=== PATIENT | male | born 1935 | race Caucasian/White ===

== ENCOUNTER 2020-03-08 15:17 | Outpatient (CLI) | payer MEDICARE, SELFPAY ==
[2020-03-08 15:40] LABS: Basophils Percent Auto 0.3 % (0.2-1.2); Eosinophils Absolute Auto 0.2 K/mm3 (0-0.3); Eosinophils Percent Auto 2.2 % (0-4.4); Hematocrit 42.5 % (42.0-52.0); Hemoglobin 14.3 g/dL (14.0-18.0); Immature Granulocyte Absolute 0.04 K/mm3 (0.00-0.031); Immature Granulocyte Percent A 0.5 % (0-0.5); Lymphocytes Absolute Auto 1.09 K/mm3 (0.9-3.2); Lymphocytes Percent Auto 12.6 % (18.3-44.2); Mean Corpuscular HGB Conc 33.6 g/dl (32-36); Mean Corpuscular Hemoglobin 33.9 pg (26-34); Mean Corpuscular Volume 100.7 fl (80-100); Mean Platelet Volume 9.6 fl (7.4-10.4); Monocytes Absolute Auto 0.6 K/mm3 (0.1-0.6); Monocytes Percent Auto 7.2 % (2.6-8.5); Neutrophils Absolute Auto 6.7 K/mm3 (1.3-6.7); Neutrophils Percent Auto 77.2 % (45.5-73.1); Platelet Count Result 171 k/mm3 (150-375); Red Blood Count 4.22 M/mm3 (4.6-6.20); Red Cell Distribution Width 12.3 % (11.5-14.5); White Blood Count 8.7 K/mm3 (4.5-10.0)
[2020-03-08 16:43] LABS: Iron 97 ug/dL (49-181)
[2020-03-08 16:44] LABS: Alanine Aminotransferase 31 U/L (4-50); Albumin Level 3.9 g/dL (3.5-5.1); Alkaline Phosphatase 60 U/L (38-126); Aspartate Amino Transferase 23 U/L (17-59); Bilirubin,Total 0.5 mg/dL (0.2-1.3); Blood Urea Nitrogen 19 mg/dL (9-20); Calcium 9.3 mg/dL (8.4-10.2); Carbon Dioxide 29 mmol/L (22-30); Chloride 102 mmol/L (98-107); Estimated Glomerular Filt Rate > 60; Glucose 156 mg/dL (75-110); Lactate Dehydrogenase 399 U/L (313-618); Potassium 4.5 mmol/L (3.4-5.0); Sodium 139 mmol/L (137-145)
[2020-03-08 16:54] LABS: Percent Iron Saturation 37 % (20-50)
[2020-03-16 08:42] LABS: Platelet Antibody, Direct IgG NEGATIVE (NEGATIVE)
== END 2020-03-08 15:18 | disposition home or self-care (01) ==
PROVIDERS: PCP Internal Medicine; Visit Provider Internal Medicine Hematology & Oncology
DX: D69.59 Other secondary thrombocytopenia (principal)
CPT/HCPCS: 36415; 80053; 82607; 82728; 83540; 83550; 83615; 85025; 86023

== ENCOUNTER 2020-04-03 13:02 | Outpatient (CLI) | payer MEDICARE, SELFPAY ==
--- NOTE | ~2020-04-03 | US_ITS ---
US abdomen complete EXAMINATION: US Abdomen Complete INDICATION: Thrombocytopenia PROCEDURE: Realtime High Resolution abdomen ultrasound. COMPARISON: No prior studies for comparison FINDINGS: Gallbladder is absent. Common bile duct measures 8 mm. Liver echotexture is increased, consistent with fatty infiltration.. Pancreas within normal limits. Pancreatic tail is obscured by bowel gas. Spleen is unremarkeable. Renal echotexture is within norm al limits bilaterally without hydronephrosis, contour deforming mass or renal stone. Right kidney yazmin sures 10.8 cm. Left kidney measures 10 cm. There is a 1.8 cm cyst in the lower pole of the left kidne y. Visualized aspects of the aorta and IVC are within normal limits. Portal vein is patent. No sonograph ic Jang's sign indicated by the technologist. IMPRESSION: 1: Increased liver echotexture, consistent with fatty infiltration. 2: Gallbladder not visualized, likely surgical absent with expected prominence of the common bile flakito t. Reviewed, dictated and finalized at location A. IMPRESSION: 1: Increased liver echotexture, consistent with fatty infiltration. 2: Gallbladder not visualized, likely surgical absent with expected prominence of the common bile duct.
== END 2020-04-03 13:03 | disposition home or self-care (01) ==
PROVIDERS: PCP Internal Medicine; Visit Provider Internal Medicine Hematology & Oncology
DX: D69.59 Other secondary thrombocytopenia (principal)
CPT/HCPCS: 76700

== ENCOUNTER 2021-05-25 17:40 | Emergency (ER) | payer MEDICARE, SELFPAY ==
[2021-05-25] VITALS (49 sets, daily range): BP systolic 166–224; BP diastolic 48–86; PULSE 66–78; RESP 10–28; TEMP 37.3; O2SAT 85–100
--- NOTE | ~2021-05-25 | CT_ITS ---
EXAMINATION: CTA chest abdomen pelvis DATE: 05/25/2021 20:49 INDICATION: Fall. Right rib pain. Right-sided abdominal pain. TECHNIQUE: Computed tomography (CT) of the chest, abdomen, and pelvis was performed without intraveno us contrast. Automated exposure control and iterative reconstruction technique were employed. Exam do se: 1265.02 mGy-cm total exam DLP. COMPARISON: None FINDINGS: CHEST CT: Status post sternotomy/aortic valve replacement. Mild thoracic aortic aneurysm. The ascending aorta m easures up to approximately 4.4 cm diameter, the aortic arch up to approximately 3.2 cm diameter. Cor onary artery calcification. There is cardiomegaly. laboratory monitor device of subcutaneous left anterior chest wall. No pericardial effusion. No hilar or mediastinal mass lesion or lymphadenopathy. No recent rib fracture is evident. ABDOMEN/PELVIS CT: The liver, spleen, pancreas, adrenal glands are unremarkable. 2.5 cm probable cyst of the lower pole of the left kidney. There is diminished contrast enhancement along the posterior medial aspect of the upper pole the righ t kidney. This may be due to pyelonephritis, contusion or subacute infarct. There is prominent abdominal aortic calcification but no aneurysm. There is calcification of the lotus ac and superior mesenteric arteries as well as prominent calcifications at the origins of the renal a rteries. Bilateral iliac and femoral extensive arterial calcification. No intraperitoneal or retroperitoneal or pelvic mass lesion or adenopathy or ascites is detected. Normal appendix. No bowel obstruction, bowel wall thickening, pneumatosis or intraperitoneal free air is detected. There is prostate enlargement and mild calcification. There is moderate diffuse thickening of the uri nary bladder wall likely due to prostate enlargement. Degenerative disc disease of lower cervical spine. Burst fracture deformity of C7. Mild anterior wedging, likely chronic, T2-T3. Diffuse idiopathic skeletal hyperostosis of the thoracic spine. There is grade 1 anterolisthesis at L4-5 due to degenerative changes apophyseal joints. Severe degenerative disc disease at L5-S1. IMPRESSION: No rib fracture is evident C7 burst fracture Probable old mild anterior wedge compression fractures of T2 and T3 Status post sternotomy/aortic valve replacement Mild thoracic aortic aneurysm 2.5 cm Probable lower pole left renal cyst 2 mm contrast enhancement along the posterior medial upper right kidney; differential diagnosis inclu corinna pyelonephritis, contusion, subacute infarct Reviewed, dictated and finalized at [facility]. Reviewed, dictated and finalized at location A. IMPRESSION: No rib fracture is evident C7 burst fracture Probable old mild anterior wedge compression fractures of T2 and T3 Status post sternotomy/aortic valve replacement Mild thoracic aortic aneurysm 2.5 cm Probable lower pole left renal cyst 2 mm contrast enhancement along the posterior medial upper right kidney; differ ential diagnosis includes pyelonephritis, contusion, subacute infarct
--- NOTE | ~2021-05-25 | XR_ITS ---
XR chest 1V portable DATE: 05/25/2021 19:05 INDICATION: Transient alteration of awareness TECHNIQUE: Portable upright AP chest on 05/25/2021 at 1901 hours COMPARISON: None FINDINGS: Status post sternotomy. There is a moderate of is overlying the lower left chest. Cardiomegaly. Aortic calcification. Mild infiltrate or atelectasis at the right lung base. The lungs otherwise appear clear. No pulmonary vascular congestion or pleural effusion or pneumothorax is detected. 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 Osteopenia. IMPRESSION: Mild right basilar infiltrate or atelectasis Reviewed, dictated and finalized at location A.
--- NOTE | ~2021-05-25 | CT_ITS ---
EXAMINATION: CT cervical spine wo con DATE: 05/25/2021 18:48 INDICATION: Fall. Confusion. Recent cervical compression fracture. TECHNIQUE: Computed tomography (CT) of the cervical spine was performed without intravenous contrast. Automated exposure control and iterative reconstruction technique were employed. Exam dose: 418.61 mGy-cm total exam DLP. COMPARISON: None FINDINGS: There is mild to moderate anterior wedging and loss of height of C7 due to recent burst fra cture. No prior examination is available. The clinical history reports a recent cervical fracture. C1 and C2 are normally aligned and the odontoid process is intact. There is multilevel degenerative disc disease, severe at C5-6, mild to moderate at the remaining leve ls. There is minimal anterolisthesis at C7-T1. Likely chronic mild anterior wedge compression fracture deformities of T2 and T3. There is degenerative change at the apophyseal joints throughout the cervical spine. There is uncovertebral joint spurring of the mid and lower cervical spine.. IMPRESSION: Recent burst fracture of C7 Mild anterolisthesis at C7-T1 Probable chronic mild anterior wedge compression fracture deformities of T1 and T2 Multilevel degenerative disc disease and degenerative change at the apophyseal and uncovertebral join ts Reviewed, dictated and finalized at Location [facility]. Reviewed, dictated and finalized at location A. IMPRESSION: Recent burst fracture of C7 Mild anterolisthesis at C7-T1 Probable chronic mild anterior wedge compression fracture deformities of T1 and T2 Multilevel degenerative disc disease and degenerative change at the apophyseal and uncovertebral joints
--- NOTE | ~2021-05-25 | CT_ITS ---
EXAMINATION: CT brain wo con DATE: 05/25/2021 18:47 INDICATION: Fall. Confusion. TECHNIQUE: Computed tomography (CT) of the head was performed without intravenous contrast. The mA wa s adjusted according to patient size. Iterative reconstruction technique was employed. Exam dose: 68 1.00 mGy-cm total exam DLP. COMPARISON: None FINDINGS: There are prominent bilateral vertebral artery calcifications as well as basilar artery mandie cification and prominent bilateral carotid siphon and supraclinoid internal carotid artery calcificat ions. There is nonspecific diminished attenuation of the cerebral white matter, likely due to chronic small vessel ischemic changes. Chronic lacunar infarct in the head of the right caudate nucleus. No intracranial mass lesion or hemorrhage, midline shift or mass effect effect. There is a small left temporal-occipital acute subdural hematoma. No fracture or bone destruction of the cranial vault is detected. 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 Small polyp or mucous retention cyst along the lower lateral right maxillary sinus and mild soft tiss ue thickening at the lower aspect of the left maxillary sinus. The paranasal sinuses and mastoid air cells are otherwise unremarkable. IMPRESSION: Small acute left temporal occipital subdural hematoma Dr. Pickard telephoned the report on 05/25/2021 1902 hours to emergency room physician Dr. Romeo Reviewed, dictated and finalized at [facility]. Reviewed, dictated and finalized at location A. IMPRESSION: Small acute left temporal occipital subdural hematoma Dr. Pickard telephoned the report on 05/25/2021 1902 hours to emergency room physic jeffrey Romeo
--- NOTE | 2021-05-25 17:53 | ECG_ITS ---
Measurements Intervals [place] Rate: 67 P: PA: 0 QRS: 55 QRSD: 86 T: 56 QT: 408 QTc: 431 Interpretive Statements SINUS RHYTHM ATRIAL PREMATURE COMPLEXES BORDERLINE AV CONDUCTION DELAY LEFT VENTRICULAR HYPERTROPHY WITH ST-T CHANGE BORDERLINE ST ABNORMALITY- ANTEROLATERAL LEADS BORDERLINE ECG Electronically Signed On 05-26-2021 6:00:02 CDT by Karl Perez D.O.
--- NOTE | 2021-05-25 18:05 | PC.NURSE ---
BP elevated. Dr Fernandez aware. Verbal order placed for 10 mg IV Labetalol
[2021-05-25] MEDS: LABETALOL HCL INJ 100 MG/20 ML VIAL 10 MG IV PUSH (18:13)
--- NOTE | 2021-05-25 18:22 | PC.NURSE ---
Patient saturations consistently dipped to 89%. Placed on 2 liters NC with no response, increased to 4 liters NC. now 93%
[2021-05-25 18:24] LABS: Basophils Absolute Auto 0.1 K/mm3 (0.0-0.1); Basophils Percent Auto 0.5 % (0.2-1.2); Eosinophils Absolute Auto 0.4 K/mm3 (0-0.3); Eosinophils Percent Auto 4.4 % (0-4.4); Hematocrit 39.9 % (42.0-52.0); Hemoglobin 13.1 g/dL (14.0-18.0); Immature Granulocyte Absolute 0.06 K/mm3 (0.00-0.031); Immature Granulocyte Percent A 0.6 % (0-0.5); Lymphocytes Absolute Auto 0.87 K/mm3 (0.9-3.2); Lymphocytes Percent Auto 9.3 % (18.3-44.2); Mean Corpuscular HGB Conc 32.8 g/dl (32-36); Mean Corpuscular Hemoglobin 33.5 pg (26-34); Mean Platelet Volume 11.1 fl (7.4-10.4); Monocytes Absolute Auto 0.8 K/mm3 (0.1-0.6); Monocytes Percent Auto 8.5 % (2.6-8.5); Neutrophils Absolute Auto 7.1 K/mm3 (1.3-6.7); Neutrophils Percent Auto 76.7 % (45.5-73.1); Platelet Count Result 153 k/mm3 (150-375); Red Blood Count 3.91 M/mm3 (4.6-6.20); White Blood Count 9.3 K/mm3 (4.5-10.0)
[2021-05-25 18:40] LABS: Alanine Aminotransferase 24 U/L (4-50); Albumin Level 3.7 g/dL (3.5-5.1); Alkaline Phosphatase 57 U/L (38-126); Anion Gap 7 mmol/L (8-16); Aspartate Amino Transferase 34 U/L (17-59); Bilirubin,Total 0.8 mg/dL (0.2-1.3); Blood Urea Nitrogen 21 mg/dL (9-20); Calcium 8.7 mg/dL (8.4-10.2); Carbon Dioxide 29 mmol/L (22-30); Chloride 104 mmol/L (98-107); Estimated CRCL calculation 58 ml/min; Estimated Glomerular Filt Rate > 60; Glucose 135 mg/dL (65-110); Potassium 3.7 mmol/L (3.4-5.0); Sodium 140 mmol/L (137-145)
[2021-05-25 19:08] LABS: Lactic Acid Reflex 1.2 mmol/L (0.7-2.1)
--- NOTE | 2021-05-25 19:20 | PC.NURSE ---
Called Avldez, patient's emergency contact listed in chart (son) for clarification. Patient is a resident at [facility] in [place]. patient had a fall on Friday and was admitted to [facility], was discharged yesterday from [place] with a C-collar back to [facility]. Patient's daughter, Octavia, called for update on patient. She states she was with patient today. Patient was a little foggy this morning and increasingly worse throughout the day. Octavia states at baseline prior to fall last week, patient is oriented x4 and mostly independent. Octavia: [phone]
--- NOTE | 2021-05-25 19:24 | ED.AMS ---
HPI - Altered Mental Status General Chief Complaint: Altered Mental Status Stated Complaint: AMS Time Seen by Provider: 05/25/21 18:28 Source: RN notes reviewed Mode of arrival: EMS Limitations: altered mental status History of Present Illness HPI narrative: This is an 85 year old male with history of hyperlipidemia, hypertension, DM who presents for evaluation of altered mental status. Patient fell 2-3 days ago and he was evaluated in an outside hospital. He was found to have a cervical spine fracture so he placed in an aspen collar and discharged to his [facility]. EMS reports his daughter noted patient was altered this morning. Patient is oriented to person . He reports he is having difficulty with his speech today. He denies any pain, nausea or vomiting. According to his medication list, he takes aspirin 81 mg and plavix 75 mg. Related Data Allergies Allergy/AdvReac Type Severity Reaction Status Date / Time Penicillins Allergy Unknown Verified 05/25/21 18:05 Review of Systems Review of Systems: ROS unobtainable: Yes unobtainable due to medical condition and unobtainable due to mental status PMFSH Past Medical History Medical History (Updated 05/25/21 @ 22:36 by Vanessa Romeo MD) CAD (coronary artery disease) Chronic constipation Diabetes mellitus Hyperlipidemia Surgical History Surgical History (Updated 05/25/21 @ 19:33 by Vanessa Romeo MD) H/O aortic valve replacement Hx of cholecystectomy Social History Social History (Updated 05/25/21 @ 19:33 by Vanessa Romeo MD) Smoking status: Never smoker Exam Const: General: alert Eyes: EOM: EOMs intact bilaterally Chest: Chest palpation & inspection: normal inspection of the chest Resp: Effort & Inspection: normal respiratory effort, not labored, no retractions and not tachypneic Auscultation: rhonchi Cardio: Rate: regular rate Rhythm: regular rhythm Heart sounds: no murmurs GI: GI Palp: Yes Soft to palpation, No Tenderness to palpation present (GI) and No Guarding due to palpation present (GI) Auscultation: normal bowel sounds Back/Spine/Pelvis: Other: in aspen collar Skin: General skin exam: normal color Rashes: no rashes Neuro: General: moves all extremities Other: expressive aphasia, oriented to person, able Extrem: Other: patient moves all extremities, equal kitchen and counter worker strength. Psych: Attitude: cooperative Course Reevaluation(s) Reevaluation #1: Patient is screaming help me. He is pointing to right flank upper abdomen. He has small bruising with tenderness. Date: 05/25/21 Time: 20:30 Reevaluation #2: Our principal secretary has [facility], [facility], [facility] and no one can accept patient. PAtient is now calm. Date: 05/25/21 Time: 22:00 Consultations Consultation #1: I spoke with Dr. Srini Vilchis neurosurgery. He recommends patient got to ER. He recommends giving keppra 1 gram. He states no parameters for blood presssure and non surgical. Patient access called back and state they can not accept patient due to no beds. Date: 05/25/21 Time: 19:56 Consultation #2: I spoke with Dr. Armstrong in [facility] ER who accepts patient to [facility]. He recommends BP less than 160 Date: 05/25/21 Time: 22:31 Vital Signs Vital signs: Vital Signs Temperature 99.1 F 05/25/21 17:42 Pulse Rate 69 05/25/21 17:42 Respiratory Rate 27 H 05/25/21 17:42 Blood Pressure 207/57 H 05/25/21 17:42 Pulse Oximetry 93 05/25/21 17:42 Temperature 99.1 F 05/25/21 17:42 Pulse Rate 72 05/25/21 23:32 Respiratory Rate 19 05/25/21 23:32 Blood Pressure 174/53 H 05/25/21 23:32 Pulse Oximetry 97 05/25/21 23:32 MDM - Altered Mental Status Lab Data Attestation: I reviewed the patient's lab results. Result diagrams: 05/25/21 18:00 05/25/21 18:00 Labs: Lab Results 05/25/21 05/25/21 05/25/21 Range/Units 18:00 18
--- NOTE | 2021-05-25 19:30 | PC.NURSE ---
MD aware of BP. No new orders at this time, Will continue to monitor.
[2021-05-25 19:35] LABS: INR 1.3; Prothrombin Time 15.5 Seconds (11.1-14.7)
[2021-05-25 19:38] LABS: Base Excess ABG -0.9 mEq/l (+/-2.0); Carboxyhemoglobin 0.7 % THb (0-2.0); Fractional Inspired Oxygen 32 %; HCO3 ABG 22.4 mEq/l (22.0-26.0); Methemoglobin ABG 0.3 %THb (0-1.5); Oxygen Content ABG 17.9 %vol (16.0-22.0); Oxygen Saturation ABG 97.9 % (95.0-100.0); Oxyhemoglobin 96.3 % THb (90.0-100.0); PCO2 ABG 33.1 mmHg (35.0-45.0); PO2 ABG 100.4 mmHg (80.0-100.0); PO2 FiO2 Ratio Arterial Blood 3.14 %; Reduced Hemoglobin 2.7 %THb (0-5.0); Total Hemoglobin 13.1 g/dL (12.0-18.0); pH ABG 7.449 (7.350-7.450)
[2021-05-25 19:40] LABS: Device NASAL CANNULA; Modified Allen's Test Pass; Site Drawn LEFT RADIAL
[2021-05-25 19:45] LABS: Add Urine Microscopic? YES; Appearance Urine Clear (Clear); Bilirubin Urine Negative (Negative); Blood Urine Negative (Negative); Color Urine Yellow (Yellow); Glucose Urine UA Negative (Negative); Ketones Urine Negative (Negative); Leukocyte Esterase Ur Negative LEU/UL (Negative); Mucus Urine Rare /lpf; Nitrate Urine Negative (Negative); Protein Urine 3+ mg/dL (Negative); RBC Urine 0-2 /hpf (0-2); Specific Grav Ur 1.026 (1.001-1.035); Squamous Epithelial Cell Urine Rare /hpf (Few); WBC Urine 0-3 /hpf
[2021-05-25 19:55] LABS: Troponin I < 0.012 ng/mL (0.000-0.034)
[2021-05-25 20:19] LABS: NT Pro B Type Natriuretic Pept 842 pg/mL (5-100)
[2021-05-25] MEDS: levETIRAcetam 1000MG/NACL100ML 1,000 MG/100 ML BAG 400 MG IVPB (21:00)
[2021-05-25] MEDS: hydrALAZINE HCL 20 MG/ML VIAL 10 MG IV PUSH (22:47)
--- NOTE | 2021-05-25 23:31 | PC.NURSE ---
Assisted offgoing RN complete transfer packet. [facility] EMS crew ETA approx. 20 min. Per ED MD, need lights and sirens for transport.
--- NOTE | 2021-05-26 00:14 | PC.NURSE ---
Called patient's daughter, Octavia [phone], to inform her of transfer to [facility].
[2021-05-26] MEDS: hydrALAZINE HCL 20 MG/ML VIAL 10 MG IV PUSH (00:42)
--- NOTE | 2021-05-26 00:43 | PC.NURSE ---
Pt to [facility] with [facility] crew. Per ED bartolo SOLORZANO to give hydralazine prior to transport. [facility] ED requests SBP <160.
[2021-05-26 01:08] VITALS: BP 174/54; PULSE 80; RESP 18; O2SAT 97
== END 2021-05-26 01:10 | disposition short-term general hospital (02) ==
PROVIDERS: Emergency Medicine; Emergency Provider General Practice; PCP Internal Medicine
DX: S06.5X0A Traumatic subdural hemorrhage without loss of consciousness, initial encounter (principal); R41.82 Altered mental status, unspecified; R10.9 Unspecified abdominal pain; S12.600A Unspecified displaced fracture of seventh cervical vertebra, initial encounter for closed fracture; E78.5 Hyperlipidemia, unspecified; I10 Essential (primary) hypertension; E11.9 Type 2 diabetes mellitus without complications; I25.10 Atherosclerotic heart disease of native coronary artery without angina pectoris; Z79.82 Long term (current) use of aspirin; W19.XXXA Unspecified fall, initial encounter; Z95.2 Presence of prosthetic heart valve; Z88.0 Allergy status to penicillin
CPT/HCPCS: 36415; 36600; 51701; 70450; 71045; 71275; 72125; 74174; 80053; 81001; 82375; 82805; 83050; 83605; 83880; 84484; 85025; 85610; 87040; 93005; 96374; 96375; 96376; 99285; J0131; J0360; J1953; Q9967